=== PATIENT | female | born 1975 | race Caucasian/White ===

== ENCOUNTER → 2020-07-29 08:46 | Outpatient (CLI) | payer OTHER, MEDICAID, SELFPAY ==
[2020-07-29 09:37] LABS: Add Manual Diff / Slide Review NO; Basophils Absolute Auto 0 /uL (0-100); Basophils Percent Auto 0.5 % (0-2); Eosinophils Absolute Auto 0 /uL (0-450); Eosinophils Percent Auto 0.6 % (2-4); Hematocrit 37.7 % (36-46); Hemoglobin 13.1 g/dL (12.0-16.0); Lymphocytes Absolute Auto 1600 /uL (1100-4500); Lymphocytes Percent Auto 22.4 % (25-40); Mean Corpuscular HGB Conc 34.6 % (30-36); Mean Corpuscular Hemoglobin 32.4 PG (26-34); Mean Corpuscular Volume 93.4 fL (80-100); Monocytes Absolute Auto 500 /uL (0-900); Monocytes Percent Auto 7.1 % (3-14); Neutrophils Absolute Auto 5100 /uL (1500-7000); Neutrophils Percent Auto 69.4 % (50-75); Platelet Count 274 X10^3/uL (150-400); Red Blood Cell Count 4.04 X10^6/uL (4.0-5.2); Red Cell Distribution Width 12.9 % (11.6-14.8); White Blood Cell Count 7.3 X10^3/uL (4.5-11.0)
[2020-07-29 09:56] LABS: Appearance Urine UA CLEAR; Bilirubin Urine UA NEGATIVE (NEGATIVE); Color Urine UA YELLOW; Glucose Urine UA NEGATIVE (Negative); Ketones Urine UA NEGATIVE (NEGATIVE); Leukocyte Esterase Urine UA NEGATIVE (NEGATIVE); Nitrite Urine UA NEGATIVE (Negative); Occult Blood Urine UA NEGATIVE (Negative); Protein Urine UA NEGATIVE (Negative); Urobilinogen Urine UA 0.2 E.U./dL (0.2)
[2020-07-29 09:59] LABS: pH Urine UA 6.5 (4.5-8.0)
[2020-07-29 10:00] LABS: Alanine Aminotransferase 15 IU/L (<35); Albumin 4.1 g/dL (3.5-5.0); Albumin Globulin Ratio 1.2 (1.0-2.8); Alkaline Phosphatase 56 U/L (38-126); Aspartate Aminotransferase 16 IU/L (14-36); BUN Creatinine Ratio 18.3 (6-22); Bilirubin Total 0.6 mg/dL (0.2-1.3); Blood Urea Nitrogen 13 mg/dL (7-17); Calcium 9.2 mg/dL (8.4-10.2); Carbon Dioxide 28 mmol/L (22-32); Chloride 103 mmol/L (98-107); Cholesterol 157 mg/dL (140-199); Estimated Glomerular Filt Rate > 60.0 mL/min (>60); Globulin 3.3 g/dL (1.7-4.1); Glucose 89 mg/dL (70-100); HDL Cholesterol 61 mg/dL (40-60); HEMOLYSIS < 15 (0-50); LDL Cholesterol Calculated 85 mg/dL (<100); Potassium 3.9 mmol/L (3.4-5.1); Sodium 139 mmol/L (137-145); Total Protein 7.4 g/dL (6.3-8.2); Triglycerides 53 mg/dL (35-150)
== END ==
PROVIDERS: PCP Registered Nurse; Referring Provider Registered Nurse; Visit Provider Registered Nurse
DX: Z00.00 Encounter for general adult medical examination without abnormal findings (principal)
CPT/HCPCS: 36415; 80053; 80061; 81003; 85025

== ENCOUNTER → 2020-08-22 08:09 | Outpatient (CLI) | payer OTHER, MEDICAID, SELFPAY ==
--- NOTE | 2020-08-22 | DI.MG.S_ITS ---
BILATERAL DIGITAL SCREENING MAMMOGRAM 3D/2D WITH CAD: 08/22/2020 CLINICAL: Routine screening. Baseline exam. No prior exams were available for comparison. The tissue of both breasts is heterogeneously dense. This may lower the sensitivity of mammography. Current study was also evaluated with a Computer Aided Detection (CAD) system. No significant masses, calcifications, or other findings are seen in either breast. IMPRESSION: NEGATIVE There is no mammographic evidence of malignancy. A 1 year screening mammogram is recommended. This exam was interpreted at Station ID: [id number]. NOTE: For mammograms, a report in lay terms will be sent to the patient. Approximately 15% of breast malignancies will not be visualized mammographically. In the management of a palpable breast mass, a negative mammogram must not discourage biopsy of a clinically suspicious lesion. Electronically Signed By: Rossana goodman/mervin:08/22/2020 13:14:15 letter sent: Normal Exam ACR BI-RADS Category 1: Negative 3341F
== END ==
PROVIDERS: PCP Registered Nurse; Referring Provider Registered Nurse; Visit Provider Registered Nurse
DX: Z12.31 Encounter for screening mammogram for malignant neoplasm of breast (principal)
CPT/HCPCS: 77063; 77067

== ENCOUNTER → 2021-09-12 07:43 | Outpatient (CLI) | payer OTHER, SELFPAY ==
--- NOTE | 2021-09-12 | DI.MG.S_ITS ---
BILATERAL DIGITAL SCREENING MAMMOGRAM 3D/2D WITH CAD: 09/12/2021 CLINICAL: Routine screening. Comparison is made to exam dated: 08/22/2020 [facility]. The tissue of both breasts is heterogeneously dense. This may lower the sensitivity of mammography. Current study was also evaluated with a Computer Aided Detection (CAD) system. There are stable benign masses in both breasts. There are grouped fine calcifications in the right breast anterior depth lateral region seen on the craniocaudal view only. There are grouped fine calcifications in the left breast at 2 o'clock middle depth. No other significant masses or calcifications are seen in either breast. IMPRESSION: INCOMPLETE: NEEDS ADDITIONAL IMAGING EVALUATION The grouped fine calcifications in the right breast anterior depth lateral region seen on the craniocaudal view only are indeterminate. Mediolateral, spot magnification, and additional views are recommended. The grouped fine calcifications in the left breast at 2 o'clock middle depth are indeterminate. Mediolateral, spot magnification, and additional views are recommended. This exam was interpreted at Station ID: [id number]. NOTE: For mammograms, a report in lay terms will be sent to the patient. Approximately 15% of breast malignancies will not be visualized mammographically. In the management of a palpable breast mass, a negative mammogram must not discourage biopsy of a clinically suspicious lesion. Electronically Signed By: Nico greer/:09/12/2021 09:08:13 letter sent: Additional Imaging Needed ACR BI-RADS Category 0: Incomplete 3340F
== END ==
PROVIDERS: PCP Registered Nurse; Referring Provider Registered Nurse; Visit Provider Registered Nurse
DX: Z12.31 Encounter for screening mammogram for malignant neoplasm of breast (principal)
CPT/HCPCS: 77063; 77067

== ENCOUNTER → 2021-09-22 16:11 | Outpatient (CLI) | payer OTHER, SELFPAY ==
[2021-09-22] MEDS: COVID-19 VACC #3, MRNA(MOD) 50 MCG/0.25 ML VIAL IM (16:35)
== END ==
PROVIDERS: PCP Registered Nurse; Visit Provider Internal Medicine
DX: Z23 Encounter for immunization (principal)
CPT/HCPCS: 0013A; 91301

== ENCOUNTER → 2021-10-20 11:51 | Outpatient (CLI) | payer OTHER, SELFPAY ==
--- NOTE | 2021-10-20 11:52 | DI.MG.S_ITS ---
BILATERAL DIGITAL DIAGNOSTIC MAMMOGRAM 3D/2D WITH ADDITIONAL VIEWS: 10/20/2021 CLINICAL: Additional evaluation requested from prior study. Comparison is made to exams dated: [facility]20[facility] The tissue of both breasts is heterogeneously dense. This may lower the sensitivity of mammography. There are stable benign masses in both breasts. There are grouped punctate round calcifications in the right breast anterior depth lateral region seen on the craniocaudal view only and not definitively confirmed on today's additional views. These are less prominent and decreased in size. There are grouped dystrophic round calcifications in the left breast at 2 o'clock middle depth. These are seen in additional views. No other significant masses or calcifications are seen in either breast. IMPRESSION: PROBABLY BENIGN The grouped punctate round calcifications in the right breast anterior depth lateral region seen on the craniocaudal view only resemble vascular calcifications or sclerosing adenosis and are probably benign. A follow-up right mammogram in 6 months is recommended to demonstrate stability. Benign dystrophic calcifications seen in the left breast. Findings and recommendations were conveyed to the patient during today's evaluation. This exam was interpreted at Station ID: [id number]. NOTE: For mammograms, a report in lay terms will be sent to the patient. Approximately 15% of breast malignancies will not be visualized mammographically. In the management of a palpable breast mass, a negative mammogram must not discourage biopsy of a clinically suspicious lesion. Electronically Signed By: Roger Arthur M.D. aty/:10/20/2021 12:35:02 letter sent: Followup Recommended ACR BI-RADS Category 3: Probably benign 3343F
== END ==
PROVIDERS: PCP Registered Nurse; Referring Provider Registered Nurse; Visit Provider Registered Nurse
DX: R92.1 Mammographic calcification found on diagnostic imaging of breast (principal)
CPT/HCPCS: 77066; G0279

== ENCOUNTER → 2022-06-22 09:20 | Outpatient (CLI) | payer OTHER, SELFPAY ==
--- NOTE | 2022-06-22 09:20 | DI.MG.S_ITS ---
UNILATERAL RIGHT DIGITAL DIAGNOSTIC MAMMOGRAM 3D/2D: 06/22/2022 CLINICAL: Short term follow up of the right breast. Comparison is made to exams dated: 10/20/2021 mammogram, 09/12/2021 mammogram, and 08/22/2020 mammogram - [facility]. The tissue of right breast is heterogeneously dense. This may lower the sensitivity of mammography. The previously identified punctate calcifications in the right breast ay 10 o'clock now resemble a coarse round calcification seen on both views. No other significant masses or calcifications are seen in the breast. IMPRESSION: BENIGN The coarse round calcification in the right breast represents a calcified oil cyst and is benign. There is no mammographic evidence of malignancy. Return to annual mammogram screening schedule is recommended. Based on the Tyrer Cuzick model (a risk assessment model) the patient's lifetime risk is 12.7% and her 10 year risk is 2.7%. According to the ACR, ACS, and NCCN guidelines, an annual breast MRI exam along with mammogram is recommended if the patient's lifetime risk is 20% or greater. This exam was interpreted at Station ID: [id number]. NOTE: For mammograms, a report in lay terms will be sent to the patient. Approximately 15% of breast malignancies will not be visualized mammographically. In the management of a palpable breast mass, a negative mammogram must not discourage biopsy of a clinically suspicious lesion. Electronically Signed By: Rossana Hidalgo M.D. lk/:06/22/2022 09:55:32 letter sent: Normal Exam ACR BI-RADS Category 2: Benign Finding(s) 3342F
== END ==
PROVIDERS: PCP Registered Nurse; Referring Provider Registered Nurse; Visit Provider Registered Nurse
DX: R92.8 Other abnormal and inconclusive findings on diagnostic imaging of breast (principal); R92.1 Mammographic calcification found on diagnostic imaging of breast; N60.01 Solitary cyst of right breast
CPT/HCPCS: 77065; G0279

== ENCOUNTER → 2023-01-04 07:59 | Outpatient (CLI) | payer OTHER, SELFPAY ==
--- NOTE | 2023-01-04 08:01 | DI.MG.S_ITS ---
BILATERAL DIGITAL SCREENING MAMMOGRAM 3D/2D WITH CAD: 01/04/2023 CLINICAL: Routine screening. Comparison is made to exams dated: 06/22/2022 mammogram, 10/20/2021 mammogram, 09/12/2021 mammogram, and 08/22/2020 mammogram - [facility]. Both breasts are heterogeneously dense, which may obscure small masses (category c / 51-75% glandular tissue). Current study was also evaluated with a Computer Aided Detection (CAD) system. There are stable benign masses in both breasts. No significant masses, calcifications, or other findings are seen in either breast. There has been no significant interval change. IMPRESSION: BENIGN There is no mammographic evidence of malignancy. A 1 year screening mammogram is recommended. Based on the Tyrer Cuzick model (a risk assessment model) the patient's lifetime risk is 12.7% and her 10 year risk is 2.7%. According to the ACR, ACS, and NCCN guidelines, an annual breast MRI exam along with mammogram is recommended if the patient's lifetime risk is 20% or greater. This exam was interpreted at Station ID: [id number]. NOTE: For mammograms, a report in lay terms will be sent to the patient. Approximately 15% of breast malignancies will not be visualized mammographically. In the management of a palpable breast mass, a negative mammogram must not discourage biopsy of a clinically suspicious lesion. Electronically Signed By: Jayden claudio/mervin:01/04/2023 12:19:35 letter sent: Normal Exam ACR BI-RADS Category 2: Benign Finding(s) 3342F
== END ==
PROVIDERS: PCP Family Medicine; Referring Provider Family Medicine; Visit Provider Family Medicine
DX: Z12.31 Encounter for screening mammogram for malignant neoplasm of breast (principal)
CPT/HCPCS: 77063; 77067

== ENCOUNTER → 2023-01-18 07:30 | Outpatient (CLI) | payer OTHER, SELFPAY ==
[2023-01-18 09:17] LABS: Add Manual Diff / Slide Review NO; Basophils Absolute Auto 100 /uL (0-100); Eosinophils Absolute Auto 100 /uL (0-450); Eosinophils Percent Auto 1.8 % (2-4); Hematocrit 39.3 % (36-46); Hemoglobin 13.4 g/dL (12.0-16.0); Lymphocytes Absolute Auto 1800 /uL (1100-4500); Lymphocytes Percent Auto 34.1 % (25-40); Mean Corpuscular Hemoglobin 31.3 PG (26-34); Monocytes Absolute Auto 400 /uL (0-900); Monocytes Percent Auto 7.3 % (3-14); Neutrophils Absolute Auto 3000 /uL (1500-7000); Neutrophils Percent Auto 55.8 % (50-75); Platelet Count 304 X10^3/uL (150-400); Red Blood Cell Count 4.27 X10^6/uL (4.0-5.2); Red Cell Distribution Width 12.8 % (11.6-14.8); White Blood Cell Count 5.4 X10^3/uL (4.5-11.0)
[2023-01-18 09:36] LABS: Alanine Aminotransferase 25 IU/L (<35); Albumin 3.9 g/dL (3.5-5.0); Albumin Globulin Ratio 1.3 (1.0-2.8); Alkaline Phosphatase 59 U/L (38-126); Aspartate Aminotransferase 18 IU/L (14-36); BUN Creatinine Ratio 21.3 (6-22); Bilirubin Total 0.3 mg/dL (0.2-1.3); Blood Urea Nitrogen 17 mg/dL (7-17); Calcium 8.6 mg/dL (8.4-10.2); Carbon Dioxide 26 mmol/L (22-32); Chloride 107 mmol/L (98-107); Cholesterol 178 mg/dL (140-199); Estimated Glomerular Filt Rate > 60 mL/min (>60); Globulin 2.9 g/dL (1.7-4.1); Glucose 87 mg/dL (70-100); HDL Cholesterol 51 mg/dL (40-60); HEMOLYSIS < 15 (0-50); LDL Cholesterol Calculated 116 mg/dL (<100); Potassium 4.4 mmol/L (3.4-5.1); Sodium 139 mmol/L (137-145); Total Protein 6.8 g/dL (6.3-8.2); Triglycerides 57 mg/dL (35-150)
[2023-01-18 10:03] LABS: Thyroid Stimulating Hormone 1.65 uIU/mL (0.47-4.68)
== END ==
PROVIDERS: PCP Family Medicine; Referring Provider Family Medicine; Visit Provider Family Medicine
DX: Z13.1 Encounter for screening for diabetes mellitus (principal); Z13.6 Encounter for screening for cardiovascular disorders
CPT/HCPCS: 36415; 80053; 80061; 84443; 85025

== ENCOUNTER 2024-04-09 12:45 | Emergency (ER) | payer OTHER, SELFPAY ==
[2024-04-09 13:05] VITALS: BP 123/69; PULSE 91; RESP 16; TEMP 37.1; O2SAT 98; BMI 22.3
[2024-04-09] MEDS: TET,DIPH,PERTUSS(ACELL),VAC/PF 0.5 ML SYRINGE IM (13:28)
--- NOTE | 2024-04-09 17:26 | ED.WOUNDLAC ---
HPI - Wound/Laceration General Chief Complaint: Wound/Laceration Stated Complaint: finger laceration Time Seen by Provider: 04/09/24 13:41 Source: patient Mode of arrival: Ambulatory History of Present Illness HPI narrative: 49-year-old female with a laceration to her left index finger proximally 3 hours ago, cut it with a pair of sommer. Unsure Ritalin as tetanus booster was and would like to be updated today. Related Data Home Medications Medication Instructions Recorded Confirmed No Known Home Medications 04/09/24 04/09/24 Allergies Allergy/AdvReac Type Severity Reaction Status Date / Time No Known Drug Allergies Allergy Verified 04/09/24 13:07 Patient History Medical History (Updated 04/09/24 @ 13:56 by Deon Yanes MD) Macromastia Surgical History Anesthesia History of dilatation and curettage History of hernia surgery Family History Father Diabetes mellitus Mother Hypertension Social History (System 07/27/20 @ 10:46 by Ladan Lawrence) marital status: unmarried,living together education level: college ([employer] and [email or web address]) occupational status: employed Smoking Status: Never smoker alcohol intake: current substance use type: does not use Smoking Status: Never smoker alcohol intake frequency: a few times a week Substance Use Type: does not use Exam Initial Vital Signs Initial Vital Signs: Vital Signs Temperature 98.8 F 04/09/24 13:05 Pulse Rate 91 H 04/09/24 13:05 Respiratory Rate 16 04/09/24 13:05 Blood Pressure 123/69 04/09/24 13:05 Pulse Oximetry 98 04/09/24 13:05 Oxygen Delivery Method Room Air 04/09/24 13:05 Extrem Other: Radial aspect of the index finger has a superficial avulsion approximately 3 x 5 mm. Bleeding is easily controlled by direct pressure. No other injuries neurovascular intact Course Orders Ordered: Discontinued Medications Diphtheria/Tetanus/Acell Pertussis (Tet,Diph,Pertuss(Acell),Vac/Pf 0.5 Ml Syringe) 0.5 ml IM .ONCE ONE Stop: 04/09/24 13:11 Last Admin: 04/09/24 13:28 Dose: 0.5 ml Documented By: ADOLFO Vital Signs Vital signs: Vital Signs - 8 hr 04/09/24 13:05 Temperature 98.8 F Pulse Rate 91 H Respiratory Rate 16 Blood Pressure 123/69 Pulse Oximetry 98 Oxygen Delivery Method Room Air MDM - Wound/Laceration MDM Narrative Medical decision making narrative: Superficial avulsion treated with wound care and pressure tetanus was updated Discharge Plan Departure Patient Disposition: Home Clinical Impression: Avulsion of skin Activity Restrictions/Additional Instructions: You have shaved off a little bit of skin from your left index finger. Pressure and elevation will help control the bleeding. Lately applied dressing on for 24 hours if possible. Following this you can change dressing daily a little bit of antibiotic ointment and a nonadherent gauze would be appropriate for dressing, we gave a tetanus booster today, this should be good for 10 years. Return to the emergency department for redness swelling or discharge from the wound indicate any signs of infection. Prescriptions: No Action No Known Home Medications Referrals: Miscellaneous,[facility] [Primary Care Provider] - Stand Alone Forms: Patient Portal/API
== END 2024-04-09 14:03 | disposition home or self-care (01) ==
PROVIDERS: Emergency Provider Emergency Medicine
DX: S61.201A Unspecified open wound of left index finger without damage to nail, initial encounter (principal); W26.8XXA Contact with other sharp object(s), not elsewhere classified, initial encounter; Z23 Encounter for immunization
CPT/HCPCS: 90471; 99283; 90715